=== PATIENT | male | born 1990 | race Caucasian/White ===

== ENCOUNTER 2016-08-24 16:50 | Emergency (ER) | payer SELFPAY ==
[2016-08-24 17:26] LABS: Hematocrit 41.1 % (42.0-52.0); Hemoglobin 14.2 gm/dL (13.5-18.0); Mean Cell Volume 83.2 fl (78-100); Mean Corpuscular Hemoglobin 28.7 pg (27-31); Mean Corpuscular Hgb Conc 34.5 g/dl (32-36); Mean Platelet Volume 9.1 fl (6.0-9.5); Neutrophil # 8.3 K/mm3 (1.3-6.0); Neutrophil % 61.4 % (42-75.0); Platelet Count 465 K/mm3 (150-450); Red Blood Count 4.94 M/mm3 (4.7-6.0); Red Cell Distribution Width 12.3 % (11.5-14.0); White Blood Count 13.4 K/mm3 (4.0-10.5)
[2016-08-24 17:40] LABS: Anion Gap 16.2 mmol/L (6.8-13.8); BUN/Creatinine Ratio 8.1 (9.0-21.6); Bilirubin, Total 0.6 mg/dL (0.0-1.1); Ca. Corrected For Albumin 9.2 mg/dL (8.4-10.2); Calcium * 9.5 mg/dL (7.9-10.9); Carbon Dioxide 22.8 mmol/L (24-32.6); Total Protein 8.3 gm/dL (6.2-8.2)
[2016-08-24 17:47] LABS: Urine Bilirubin Negative (NEGATIVE); Urine Ketone 15 mg/dL (NEGATIVE); Urine Nitrite Negative (NEGATIVE); Urine Protein Negative (NEGATIVE); Urine Urobilinogen Normal (NORMAL)
[2016-08-24] MEDS ORDERED: NORMAL SALINE 1,000 ML IV ONE (17:54)
[2016-08-24] MEDS ORDERED: KETOROLAC TROMETHAMINE 30 MG/ML VIAL IV ONE (17:54)
[2016-08-24] MEDS ORDERED: PROMETHAZINE HCL 25 MG in DEXTROSE 5 % IN WATER 50 ML IV ONE ×2 (17:54)
--- NOTE | 2016-08-24 17:55 | ERNOTE ---
<Priscila Encinas - Last Filed: 08/24/16 22:04> Medical Problem HPI - Narrative Date of Service: 08/24/16 - General Chief Complaint: Anxiety Time Seen by Provider: 08/24/16 16:58 Source: patient, RN notes reviewed Exam Limitations: no limitations - Immun/Allergies/Home Medications Immunizations: IMMUNIZATION HX Immunizations Up to Date Yes History of Influenza Vaccine No Hx Pneumococcal Vaccination No Allergies/Adverse Reactions: Allergies Penicillins Adverse Reaction (Unknown, Verified 08/24/16 17:02) Other Home Medications: HOME MEDICATIONS NK [No Home Medication] 08/24/16 [Last Taken Unknown] - History of Present History Narrative: 26 y/o male to ED by private vehicle for a "panic attack." He reports drinking an energy drink before he went to work. He began feeling shaky and diaphoretic. He then vomited. He thought he was feeling better and went to work, but then began feeling ill again. He also reports pain in both of his "kidneys" and feeling like his legs are weak and will not not him. Review of Systems - Review of Systems Constitutional: Present: diaphoresis, fatigue, malaise. Absent: recent illness EYE: Present: no symptoms reported ENT: Present: no symptoms reported Respiratory: Absent: shortness of breath, cough Cardiology: Absent: chest pain, palpitations, syncope Gastrointestinal/Abdominal: Present: nausea, vomiting. Absent: diarrhea, constipation, abdominal pain Genitourinary: Absent: frequency, dysuria, hematuria Musculoskeletal: Present: back pain. Absent: neck pain Skin: Absent: rash, lesions Neurological: Present: dizziness/light-headedness, tingling. Absent: headache, numbness Endocrine: Present: no symptoms reported Hematologic/Lymphatic: Present: no symptoms reported Psych: Present: anxiety - Patient's Past Medical History Patient History - Medical: Anxiety, Headache, Migraines Patient History - Cardiac/Respiratory: No pertinent hx Patient History - Cancer: No Hx of Cancer Patient History - Surgical Procedures: Ear Tubes Patient History - Other: None - Social History Living Situations: home Psych History: Hx of Anxiety Smoking Status: Current every day smoker Have you smoked in the past 12 months: Yes Do you dip or chew tobacco: No Alcohol Use: occasionally Drug Use: none - Immunizations Immunizations Up to Date: Yes Hx Pneumococcal Vaccination: No History of Influenza Vaccine: No Physical Exam - Physical Exam General Appearance: Present: wd/wn, alert, mild distress, anxious Neck: Present: normal inspection, nontender, supple Respiratory: Present: no respiratory distress, normal breath sounds, no accessory muscle use, lungs clear Cardiovascular/Chest: Present: regular rate, rhythm, no murmur, normal peripheral pulses Gastrointestinal/Abdominal: Present: normal bowel sounds, nondistended, soft, tenderness - right upper and lower quads - worse in lower, guarding - right lower quadrant Back Exam: Present: no vertebral tenderness, CVA tenderness (R). Absent: CVA tenderness (L) Extremity Exam: Present: normal inspection, non-tender, normal range of motion, no edema Neurological Exam: Present: alert, oriented, no motor/sensory deficits. Absent : normal mood/affect Skin Exam: Present: diaphoresis, pallor Lymphatic Exam: Present: no adenopathy ED Progress - Results and Orders Patient's Lab Results:: I have reviewed the patient's lab results. - Vital Signs Patient's Vital Signs:: I have reviewed the patient's vital signs. Vital Signs: Vital Signs 08/24/16 16:55 Temperature 37.2 C Pulse Rate 109 H Respiratory 16 Rate Blood Pressure 154/85 O2 Sat by Pulse 96 Oximetry - Progress/Reassessment Chief Complaint: Anxiety Progress:: Unchanged Progress Note-Subjective: 08/24/16 22:05 Toradol given for pain, Phenergan IVPB for nausea - was then able to tolerate oral contrast for CT. NS 1 L bolus given. Small amount of blood present on UA, WBC also elevated - CT Abd/Pelvis obtained to r/o stones and appendicitis given his right flank and right lower quadrant pain. Results pending. Discussed drug screen positive for amphetamines - patient denies meth use, states he got a "pill" from a friend that might have had some in it. - Transfer of Care Physician Sign Out: Priscila Encinas Receiving Physician: Yusef Olivera Pending Results: CT/MRI results Expected Disposition: Discharge Departure - Departure Clinical Impression: Acute flank pain, Right lower quadrant abdominal pain, Hypokalemia, Amphetamine abuse Disposition: Home Follow Up Needed Condition: Good Instructions: Panic Attacks, [id number], Stimulant Use Disorder- Methamphetamines Additional Instructions: AVOID METHAMPHETAMINES OR STIMULANT DRUGS INCLUDING SO - CALLED "ENERGY DRINKS AND PILLS" AND DO NOT TAKE ANY PILLS NOT PRESCRIBED TO YOU. SEE YOUR FAMILY DOCTOR IF FURTHER PROBLEMS. . <JarodYusef - Last Filed: 08/24/16 23:55> Medical Problem HPI - Narrative Date of Service: 08/24/16 - Immun/Allergies/Home Medications Immunizations: IMMUNIZATION HX Immunizations Up to Date Yes History of Influenza Vaccine No Hx Pneumococcal Vaccination No ED Progress - Results and Orders Patient's Lab Results:: I have reviewed the patient's lab results. - Vital Signs Patient's Vital Signs:: I have reviewed the patient's vital signs. Vital Signs: Vital Signs 08/24/16 08/24/16 08/24/16 16:55 17:55 18:50 Temperature 37.2 C 37.0 C 36.9 C Pulse Rate 109 H 89 102 H Respiratory 16 16 15 Rate Blood Pressure 154/85 142/84 152/83 O2 Sat by Pulse 96 98 97 Oximetry 08/24/16 08/24/16 08/24/16 20:10 20:40 21:40 Temperature 36.9 C 36.9 C 36.7 C Pulse Rate 97 97 97 Respiratory 16 16 16 Rate Blood Pressure 142/81 148/82 151/80 O2 Sat by Pulse 98 98 99 Oximetry 08/24/16 08/24/16 22:15 23:20 Temperature 36.7 C 36.8 C Pulse Rate 99 76 Respiratory 14 16 Rate Blood Pressure 148/83 98/53 O2 Sat by Pulse 99 98 Oximetry - CT/Ultrasound CT/Ultrasound Narrative: CT ABD/PEL WITH IV CONTRAST AND ENTERIC CONTRAST = NO EVIDENCE OF A CUTE PROBLEMS PER [facility] REPORT.
[2016-08-24] MEDS ORDERED: PROMETHAZINE HCL 25 MG/ML AMPUL ONE (17:57)
[2016-08-24] MEDS ORDERED: KETOROLAC TROMETHAMINE 30 MG/ML VIAL ONE (17:57)
[2016-08-24 17:58] LABS: Urine Appearance Clear; Urine Blood 10 /ul (NEGATIVE); Urine Color Yellow; Urine RBC 0-5 /hpf (0-5); Urine WBC None Seen /hpf (0-5)
[2016-08-24 17:59] LABS: Urine Bacteria None Seen
[2016-08-24 18:00] LABS: Cocaine Ur Negative (NEGATIVE); Urine Barbiturate Negative (NEGATIVE); Urine Benzodiazepines Negative (NEGATIVE); Urine Opiates Negative (NEGATIVE); Urine PCP Negative (NEGATIVE); Urine THC Negative (NEGATIVE)
[2016-08-24] MEDS ORDERED: DIATRIZOATE MEGLU/DIATRIZO SOD 30 ML BTL ONE (19:34)
[2016-08-24] MEDS ORDERED: DIATRIZOATE MEGLU/DIATRIZO SOD 30 ML BTL PO ONE (19:40)
[2016-08-24 23:22] VITALS: BP 98/53
== END 2016-08-25 00:03 | disposition home or self-care (01) ==
LOC: ER 16:50
DX: R10.31 Right lower quadrant pain (principal); Z72.0 Tobacco use; E87.6 Hypokalemia; F15.10 Other stimulant abuse, uncomplicated